=== PATIENT | male | born 1975 | race Caucasian/White ===

== ENCOUNTER 2017-11-29 15:00 | Emergency (ER) | payer BC ==
[~2017-11-29] VITALS: Ht 180.3 cm; Wt 113.4 kg
[~2017-11-29 15:00] MED LIST: ACETAMINOPHEN325 M1 PO; CELEXA40 MG PO; KETOROLAC TROME10 MG PO; KLONOPIN2 MG PO; LISINOPRIL10 MG PO; QUESTRAN PACKET4 GM PO; TYLENOL WITH C1 EACH PO; ULTRAM 50MG50 MG PO
--- OUTSIDE RECORDS SUMMARY | 2017-11-29 15:03 | XMS REPORT ---
Author Author [facility] Address Unknown Phone Unavailable Care Team Providers Care Disposition Clerk Name Role Phone RUDDY SAGASTUME PP Unavailable Problems This patient has no known problems. Allergies, Adverse Reactions, Alerts This patient has no known allergies or adverse reactions. Medications This patient has no known medications. Encounters Start Date/Time End Date/Time Encounter Type Admission Type Attending Clinicians Care Facility Care Department Encounter ID 2016-12-21 23:53:00 2016-12-21 23:53:00 Emergency [id number] [id number] Results Test Description Test Time Test Comments Text Results Atomic Results Result Comments CT ABDOMEN/PELVIS WITH 2017-07-19 17:58:[address] [id number] IMAGING REPORTPatient Name : GABBIE GALO SDate of Service: 18-01-[birth year]46Ldz: 42 Sex: M Order #: [id number] Room: ERSDOB: 1975 X-Ray Number: [id number] Record Number : [id number] Hospital Number: [id number] Physician: NOELLE KNOX TANOrdering Physician: KISHA MCKINNEY abdomen and pelvis.History: Right- sided abdominal pain.Technique: IV contrast enhanced CT axial images of the abdomen and pelviswith sagittal and coronal reformatted images were reviewed.This CT exam was performed using one or more of the following dosereduction techniques: Automated exposure control, adjustment of the MAand/ or KV according to patient size or use of iterative reconstructiontechnique.Comparison: None.Findings:Images of the lower lungs and mediastinum demonstrate no specific defects.There is diffuse fatty infiltration of the liver, moderately severe.The other solid large organs of the upper abdomen appear focally normal.The gallbladder is surgically absent.There is no significant retroperitoneal adenopathy or fluid collectionsdepicted.Small bowel loops appear normal.Large bowel loops demonstrate only scattered fecal debris.The appendix is retrocecal and appears normal.The urinary bladder appears normal. There is no pelvic free fluid seen.Impression:Moderately severe fatty infiltration of the liver and probablehepatomegaly.No other specific acute appearing abdominal abnormalities.Electronically Signed By: Suman Song M.D., 07/19/2017 5:56 PMLegally authenticated by SAM Hunt 2016 17:56:14
[2017-11-29 17:03] LABS: BILIRUBIN,URINE NEGATIVE (NEGATIVE); COLOR,URINE YELLOW (YELLOW); KETONES,URINE NEGATIVE (NEGATIVE); LEUKOCYTE ESTERASE ,URINE NEGATIVE (NEGATIVE); NITRITE,URINE NEGATIVE (NEGATIVE); PROTEIN,URINE DIPSTICK NEGATIVE (NEGATIVE); URINE UROBILINOGEN 0.2 mg/dL (0.2 - 1)
[2017-11-29 17:04] LABS: CLARITY,URINE SL CLOUDY (CLEAR)
[2017-11-29 17:31] LABS: BASOPHILS # (AUTO) 0.1 (0.0-0.1); BASOPHILS % 0.9 % (0.0-1.0); HEMATOCRIT 47.5 % (38.2-49.6); HEMOGLOBIN 16.3 g/dL (14.0-18.0); LYMPHOCYTES # (AUTO) 4.3 (1.0-3.2); LYMPHOCYTES % 36.6 % (18.0-39.1); MEAN CORPUSCULAR HEMOGLOBIN 30.6 pg (28-32); MEAN CORPUSCULAR HGB CONC 34.3 g/dL (31-35); MEAN CORPUSCULAR VOLUME 89.3 fL (81-99); MONOCYTES # (AUTO) 0.9 (0.2-0.8); NEUTROPHILS # (AUTO) 6.3 (2.1-6.9); NEUTROPHILS % 53.8 % (38.7-80.0); PLATELET COUNT 299 x10e3/uL (140-360); RED BLOOD COUNT 5.32 x10e6/uL (4.3-5.7); RED CELL DISTRIBUTION WIDTH 12.3 % (11.7-14.4)
[2017-11-29 17:49] LABS: ALANINE AMINOTRANSFERASE 60 IU/L (0-55); ALBUMIN 4.3 g/dL (3.5-5.0); ALBUMIN/GLOBULIN RATIO 1.1 (0.8-2.0); ALKALINE PHOSPHATASE 62 IU/L (40-150); ANION GAP 16.9 mmol/L (8-16); BLOOD UREA NITROGEN 13 mg/dL (7-26); BUN/CREATININE RATIO 15 (6-25); CARBON DIOXIDE 20 mmol/L (22-29); CHLORIDE 104 mmol/L (98-107); CREATININE, SERUM 0.84 mg/dL (0.72-1.25); EST GLOMERULAR FILTRATION RATE > 60 ML/MIN (60-); GLUCOSE 99 mg/dL (74-118); POTASSIUM 4.9 mmol/L (3.5-5.1); SODIUM 136 mmol/L (136-145)
--- NOTE | 2017-11-29 17:51 | Diagnostic Imaging Report ---
EXAM: CT Abdomen and Pelvis WITHOUT contrast INDICATION: Flank pain COMPARISON: 05/02/2017 CT TECHNIQUE: Abdomen and Pelvis was scanned utilizing a multidetector helical scanner without the use of IV contrast. Coronal and sagittal reformations were obtained. IV CONTRAST: None COMPLICATIONS: None RADIATION DOSE: Total DLP: 859 mGy*cm Estimated effective dose: (DLP x 0.015 x size factor) mSv CTDIvol has been reviewed. It is below the limits set by the Radiation Protocol Committee (RPC). FINDINGS: Abdomen: Lung Bases: No acute findings. Solid Organs: Cholecystectomy clips. Mild hepatic steatosis. No hydronephrosis, renal, or ureteral calculi. Nonenhanced images of the solid organs otherwise unremarkable. Upper GI Tract: No small bowel obstructive changes. Vascularity: No vascular calcifications or aortic aneurysm. Lymph Nodes: No suspicious adenopathy. Other: None. Pelvis: Bladder: Decompressed, limiting evaluation. Other: None. Colon: No acute colonic findings. Appendix not inflamed. Bones: No acute findings. IMPRESSION: 1. No acute findings in the abdomen or pelvis. Signed by: Dr. Julio Covarrubias MD on 11/29/2017 5:48 PM
[2017-11-29 18:48] VITALS: BP 129/88
== END 2017-11-29 18:51 | disposition home or self-care (01) ==
LOC: ER 15:00
DX: R10.31 Right lower quadrant pain (principal); I10 Essential (primary) hypertension; Z87.442 Personal history of urinary calculi
CPT/HCPCS: 36415; 74176; 80053; 81001; 85025; 87086; 99283